=== PATIENT | female | born 1970 | race Caucasian/White ===

== ENCOUNTER → 2018-01-11 | Outpatient (CLI) | payer BC ==
[2005-12-17 07:00] VITALS: TEMP 98
== END ==
LOC: MC.RAD 12-28 14:40
DX: Z12.31 Encounter for screening mammogram for malignant neoplasm of breast (principal); Z98.82 Breast implant status

== ENCOUNTER 2018-08-14 23:45 | Emergency (ER) | payer BC ==
[~2018-08-14] VITALS: Ht 162.6 cm; Wt 68.2 kg
[2018-08-14 23:51] VITALS: BP 170/102; PULSE 93; TEMP 97.7
[2018-08-15] MEDS ORDERED: ZOLOFT 50MG50 MG PO (00:26)
== END 2018-08-15 00:34 | disposition home or self-care (01) ==
LOC: COL.ER 23:45
DX: Z02.83 Encounter for blood-alcohol and blood-drug test (principal)

== ENCOUNTER → 2019-06-02 | Outpatient (CLI) | payer OTHER ==
[2005-12-17 07:00] VITALS: TEMP 98
[~2019-06-02] MED LIST: ZOLOFT 50MG50 MG PO
== END ==
LOC: MC.RAD 14:15
DX: Z12.31 Encounter for screening mammogram for malignant neoplasm of breast (principal); Z98.82 Breast implant status

== ENCOUNTER → 2022-01-17 | Outpatient (CLI) | payer BC ==
[2005-12-17 07:00] VITALS: TEMP 98
== END ==
LOC: MC.RAD 16:28
DX: Z12.31 Encounter for screening mammogram for malignant neoplasm of breast (principal)